=== PATIENT | female | born 1985 | race Caucasian/White ===

== ENCOUNTER 2019-09-16 12:00 | Emergency (ER) | payer OTHER, SELFPAY ==
[2019-09-16 12:06] VITALS: BP 115/73; PULSE 74; RESP 16; TEMP 36.8; O2SAT 100
--- NOTE | 2019-09-16 12:19 | ED.URI ---
HPI - URI/Sore Throat General Chief Complaint: Upper Respiratory Infection Stated Complaint: HEADACHE/CHILLS/BODY ACHES/ST/EARACHE Time Seen by Provider: 09/16/19 12:28 Source: patient and RN notes reviewed Mode of arrival: ambulatory Limitations: no limitations History of Present Illness HPI Narrative: 34-year-old female presents with concern for 3-day history of nasal congestion, ear pain, sore throat, cough, rhinorrhea, body aches. Denies fever. Denies taking any [id number] medications MD elicited complaint: nasal congestion Related Data Allergies Allergy/AdvReac Type Severity Reaction Status Date / Time No Known Drug Allergies Allergy Unknown none Verified 09/16/19 12:13 Review of Systems Review of Systems: Narrative: CONSTITUTIONAL: Reports malaise, chills. Denies sweats, or fever. EYES: Denies visual changes, redness, or discharge. ENT: Reports rhinorrhea, congestion, otalgia and sore throat. CARDIOVASCULAR: Denies chest pain, palpitations, or edema. RESPIRATORY: Reports cough. Denies dyspnea. GASTROINTESTINAL: Denies abdominal pain, nausea, vomiting, diarrhea SKIN: Denies rash or itching. MUSCULOSKELETAL: Reports myalgia. NEUROLOGIC: Denies headache. All systems reviewed & are unremarkable except as noted in HPI and below PMFSH Comments At time of signature, agree with nursing past medical, surgical, social and family history. There is no relevant family history pertinent to the presenting complaint Exam Narrative: Exam Narrative: GENERAL: Well-appearing, well-nourished, and in no acute distress. HEAD: Normocephalic EYES: PERRLA, conjunctivae clear ENT: Nares clear, turbinates edematous and erythematous, clear discharge. Mucous membranes moist. TM pearly daniel with dull light reflex bilaterally; no tragal tenderness. Oropharynx erythematous without lesions. Tonsils not enlarged and without exudate, no drooling, no hoarseness, no trismus, uvula midline. NECK: Supple. No lymphadenopathy CHEST: Clear to auscultation, breath sounds equal. No wheezing, rhonchi, rales, or stridor. No respiratory distress, speaks in full sentences. HEART: Regular rate and rhythm. No murmur heard. Normal peripheral pulses. SKIN: Warm, dry, no rash. NEURO: Alert and oriented x3. PSYCH: Normal mood and affect Course Course Emergency Course: Patient is aware of diagnosis, understands and agrees to treatment plan. Anticipatory guidance given. Patient agrees to follow-up as directed and is aware of reasons to seek care at the emergency department. Portions of this record may have been created with voice recognition software Vital Signs Vital signs: Vital Signs Temperature 98.3 F 09/16/19 12:06 Pulse Rate 74 09/16/19 12:06 Respiratory Rate 16 09/16/19 12:06 Blood Pressure 115/73 09/16/19 12:06 Pulse Oximetry 100 09/16/19 12:06 Temperature 98.3 F 09/16/19 12:06 Pulse Rate 74 09/16/19 12:06 Respiratory Rate 16 09/16/19 12:06 Blood Pressure 115/73 09/16/19 12:06 Pulse Oximetry 100 09/16/19 12:06 Reviewed. MDM - URI/Sore Throat MDM Narrative Medical decision making narrative: Differential diagnosis considered: Strep pharyngitis, allergic rhinitis, upper respiratory tract infection, sinusitis, rhinosinusitis, nasopharyngitis. viral pharyngitis, otitis media, otitis externa, pneumonia, bronchitis, viral cough syndrome, viral syndrome, and influenza. Exam findings show no acute concerns or changes; patient is non-toxic appearing and is in no distress. Patient is appropriate for outpatient treatment and follow-up. Lab Data Attestation: I reviewed the patient's lab results. Labs: Strep Screen Presumptive Negative *(Reference Range: Negative)* Critical Care Time Critical Care Time Critical Care Time: No Discharge Plan Discharge Clinical Impression: Upper respiratory infection Qualifiers: URI type: unspecified viral URI Qualified Code(s): J06.9 - Acute upper respiratory i
== END 2019-09-16 12:55 | disposition home or self-care (01) ==
PROVIDERS: Emergency Provider Nurse Practitioner
DX: J06.9 Acute upper respiratory infection, unspecified (principal)
CPT/HCPCS: 87081; 87804; 87880; 99213; G0463

== ENCOUNTER 2020-04-13 18:37 | Emergency (ER) | payer OTHER, SELFPAY ==
--- NOTE | ~2020-04-13 | US_ITS ---
EXAMINATION: US OB <= 14 weeks fetus DATE: 04/13/2020 20:13 INDICATION: Vaginal bleeding during first trimester TECHNIQUE: Real-time pelvic ultrasound utilizing both a transvaginal and transabdominal probe was pe rformed. The interpreting radiologist was not present for the study. COMPARISON: None. FINDINGS: The uterus measures 12.0 x 6.9 x 5.4 cm. There is an intrauterine gestational sac. A yolk sac and fe eduin pole are identified. The crown rump length measures 1.2 cm, which correlates with an estimated ge stational age of 7 weeks and 3 days. No evident heart motion on cine grayscale or by M-mode Dop pler. The right ovary is not visualized. The left ovary measures 4.2 x 2.7 x 2.0 cm and contains a 2.3 cm l ikely corpus luteum cyst. Vascular flow seen in the left ovary on color Doppler. There is no free flu id in the pelvis. IMPRESSION: 1. Single intrauterine fetus with crown-rump length of 1.2 cm but no discernible heart motion o n M-mode Doppler is suspicious for but on transabdominal imaging not definitively diagnostic for fail ure of . Transvaginal imaging would likely be diagnostic. Reviewed, dictated and finalized at location A. IMPRESSION: 1. Single intrauterine fetus with crown-rump length of 1.2 cm but no discernibl e heart motion on M-mode Doppler is suspicious for but on transabdominal imaging not definitively diagnostic for failure of . Transvaginal imag ing would likely be diagnostic.
[2020-04-13 18:42] VITALS: BP 138/74; PULSE 62; RESP 17; TEMP 36.4; O2SAT 100
--- NOTE | 2020-04-13 18:44 | ED.FEMALEGU ---
HPI - Female Genitourinary General Chief complaint: Vaginal Bleeding Stated complaint: 11 weeks preg, vaginal bleeding Time Seen by Provider: 04/13/20 18:44 History of Present Illness HPI Narrative: female at approximately 11 weeks gestation presents to the ED for Vaginal bleeding. Earlier this evening she experienced some pelvic cramping followed by passage of blood clots and possibly a small amount of tissue. SHe continued to spot and have mild cramping after that. She is Rh positive. Related Data Home Medications Medication Instructions Recorded Confirmed [id number] acid tablet 04/13/20 [ 19] Allergies Allergy/AdvReac Type Severity Reaction Status Date / Time No Known Drug Allergies Allergy Unknown none Verified 04/13/20 18:41 Review of Systems Review of Systems: All systems reviewed & are unremarkable except as noted in HPI and below Cardiovascular: Cardiovascular: Denies chest pain Respiratory: Respiratory: Denies dyspnea Gastrointestinal: Gastrointestinal: Denies abdominal pain, Denies nausea and Denies vomiting Genitourinary: Genitourinary: Reports abnormal vaginal bleeding and Reports pelvic pain Musculoskeletal: Musculoskeletal: Denies back pain [facility] Social History Social History Gender identity (if verbalized by the patient): Female Exam Const: General: healthy appearing, no acute distress and alert Orientation/consciousness: patient oriented x3 HENMT: Head: normal to inspection Neck: Neck: normal visual inspection and no lymphadenopathy Chest: Chest palpation & inspection: no tenderness Resp: Effort & Inspection: normal respiratory effort Auscultation: clear to auscultation bilaterally, no rales, no rhonchi and no wheezes Cardio: Jugular venous distension: no JVD Rate: regular rate Rhythm: regular rhythm Heart sounds: no murmurs GI: Inspection: non-distended GI Palp: Yes Soft to palpation and No Tenderness to palpation present (GI) Skin: General skin exam: normal color Neuro: General: patient oriented x3 and moves all extremities Speech: normal speech Extrem: General: no edema Psych: Appearance: well kempt Affect: normal affect Course Vital Signs Vital signs: Vital Signs Temperature 36.4 C 04/13/20 18:42 Pulse Rate 62 04/13/20 18:42 Respiratory Rate 17 04/13/20 18:42 Blood Pressure 138/74 04/13/20 18:42 Pulse Oximetry 100 04/13/20 18:42 Temperature 36.9 C 04/13/20 21:30 Pulse Rate 80 04/13/20 21:30 Respiratory Rate 18 04/13/20 21:30 Blood Pressure 123/75 04/13/20 21:30 Pulse Oximetry 99 04/13/20 21:30 MDM - Female Genitourinary MDM Narrative Medical decision making narrative: IUP seen on bedside US. No heart activity appreciated. Official US done showing the same. Medical Records Attestation: I reviewed the patient's medical records. Lab Data Attestation: I reviewed the patient's lab results. Labs: Lab Results 04/13/20 Range/Units 19:29 Beta HCG, Quant 62080.00 mIU/ML Imaging Data Radiologist's impression: ITS Impressions Ultrasound 04/13/20 20:18 IMPRESSION: 1. Single intrauterine fetus with crown-rump length of 1.2 cm but no discernible heart motion on M-mode Doppler is suspicious for but on transabdominal imaging not definitively diagnostic for failure of . Transvaginal imaging would likely be diagnostic. Discharge Plan Discharge Clinical Impression: Incomplete miscarriage Patient Disposition: Home, Self-Care Condition: Stable Instructions: Miscarriage (ED) Prescriptions: No Action 19 29 mg iron- 1 mg tablet,chewable RF: 0 Follow-up/Referrals: UNKNOWN,DOCTOR [Primary Care Provider] - Discharge Date/Time: 04/13/20 21:30
[2020-04-13 19:30] VITALS: BP 129/75; PULSE 88; RESP 16; TEMP 36.6; O2SAT 98
[2020-04-13 21:30] VITALS: BP 123/75; PULSE 80; RESP 18; TEMP 36.9; O2SAT 99
== END 2020-04-13 21:30 | disposition home or self-care (01) ==
PROVIDERS: Emergency Provider Emergency Medicine
DX: O03.4 Incomplete spontaneous abortion without complication (principal)
CPT/HCPCS: 36415; 76801; 84702; 99284

== ENCOUNTER 2021-03-13 12:23 | Outpatient (CLI) | payer OTHER, SELFPAY ==
--- NOTE | ~2021-03-13 | XR_ITS ---
EXAMINATION: XR lumbar spine 6V w bending DATE: 03/13/2021 13:41 INDICATION: Low back pain. TECHNIQUE: 7 views of lumbar spine including flexion and extension views were obtained. COMPARISON: Chest single view 09/21/2019 FINDINGS: There is 22 degrees levoscoliosis of thoracolumbar spine. The spine is hypomobile with flex ion and extension. Vertebral body heights and intervertebral disc heights are normal. The facet joint s are unremarkable. IMPRESSION: 1. Thoracolumbar levoscoliosis. Reviewed, dictated and finalized at location A.
--- NOTE | ~2021-03-13 | XR_ITS ---
EXAMINATION: XR sacrum coccyx min 2V DATE: 03/13/2021 13:41 INDICATION: Sacrococcygeal disorders. Right sacroiliac joint pain. TECHNIQUE: 3 views of the sacrum and coccyx were obtained. COMPARISON: Chest single view 09/21/2019 FINDINGS: There is levoscoliosis of thoracolumbar spine. No fracture. There is mild osteoarthritis of the sacroiliac joints characterized by tiny marginal osteophytes. No evidence of inflammatory arthro levi. IMPRESSION: 1. Mild osteoarthritis of the sacroiliac joints. Reviewed, dictated and finalized at location A.
== END 2021-03-13 12:24 | disposition home or self-care (01) ==
LOC: ANHIMG 12:33
PROVIDERS: PCP Physician Assistant; Visit Provider Physician Assistant
DX: M54.5 Low back pain (principal); M53.3 Sacrococcygeal disorders, not elsewhere classified; M41.85 Other forms of scoliosis, thoracolumbar region; M47.898 Other spondylosis, sacral and sacrococcygeal region
CPT/HCPCS: 72114; 72220

== ENCOUNTER 2021-05-20 07:30 | Outpatient (RCR) | payer OTHER, SELFPAY ==
--- NOTE | 2021-03-29 13:57 | PTOPEVAL ---
Thank you for referring Krysta Matias to [facility].? The patient is scheduled to be seen for therapy?1 x/week for 8 weeks. Please review, sign, date and return this plan of care CHAIM. I agree with and certify that the following plan of care is medically necessary. Referring Physician Date Attending Provider: Reinaldo Tinoco PA-C Diagnosis low back pain Onset 4 yrs ago Additional Evaluation Detail She has been having back pain since the of her son 4 yrs ago. She felt a popping sensation of her low back 3 yrs ago. She received chiropractor treatment for a few months with improved symptoms. X-rays: 22 dg left thoracic/ lumbar scoliosis with OA. Subjective Information She will have trouble sleeping Query Text:As Reported By Patient/ due to pain. 2 wks ago she Family started with a epic trainer 1-2x/wk. She was trying to get back into a yoga program. She was leaning over at work and felt a popping sensation again. She has right low back pain this time vs left low back pain last time. Reports increased pain with transition motions from sit<> stand motions. Denies problems with lifting task. She did have problems with ADL's with right LE flex position. Previous Treatments Previous Treatments For This Problem chiropractor Pain Assessment Self Report Pain Assessment Right Lower Back Reported Pain Level 3 Pain Description Aching Pain Frequency Chronic Lowest Pain Intensity 2 Greatest Pain Intensity 5 Lower Extremity Range of Motion General Lower Extremity Range of Motion Reason Not Measured WNL/Left,WNL/Right Cervical and Lumbar Muscle Testing Lumbar Strength Lower Abdominal Strength 3+Fair+ Lower Extremity Muscle Strength Testing General Lower Extremity Strength Reason Not Measured WNL/Left,WNL/Right Gross Lower Extremity Strength nicole LE grosslying 4+/5 to 5/5 Posture Standing Position Thoracic Spine Posture Fixed Scoliosis on (L) Lumbar Spine Posture Fixed Scoliosis on (L) Shoulder Posture (L) Rounded,(R) Rounded,(L) Elevated Scapula Posture (L) Winged,(R) Winged,(L)
--- NOTE | 2021-04-05 08:57 | PCPTNOTE ---
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 Will continue per POC.
--- NOTE | 2021-04-22 10:30 | PTOPEVAL ---
Physical Therapy progress note Thank you for referring Krysta Matias to [facility].? See summary below for progress with limitations of joint motion, pain, tissue restriction and posture. She is progressing towards her therapy goals. The patient is scheduled to be seen for therapy? 1 visit every other week for 3 additional visits. Please review, sign, date and return this plan of care CHAIM. I agree with and certify that the following plan of care is medically necessary. Referring Physician Date Attending Provider: Reinaldo Tinoco PA-C Problem Diagnosis low back pain Onset 4 yrs ago Additional Evaluation Detail She has been having back pain since the of her son 4 yrs ago. She felt a popping sensation of her low back 3 yrs ago. She received chiropractor treatment for a few months with improved symptoms. X-rays: 22 dg left thoracic/ lumbar scoliosis with OA. Subjective Information She cont to c/o ache pain of Query Text:As Reported By Patient/ low back region with improve Family intensity. She is sleeping better. She has not returned to life skills trainer or performing yoga. She is not having the popping senstion of her back. Denies problems with lifting task, functional movements, transfers on/off floor or surfaces. She is able to be supine with nicole LE straight without significant pain. She denies problems with ADL's. Pain Assessment Self Report Pain Assessment Right Lower Back Reported Pain Level 1 Pain Description Aching,Dull Lowest Pain Intensity 1 Greatest Pain Intensity 4 Cervical and Lumbar ROM Lumbar ROM Reason Not Measured WNL/Left,WNL/Right Lumbar Comments 100% of motion, discumfort and muscle tightness with ext, lateral flex Cervical and Lumbar Muscle Testing Lumbar Strength Upper Abdominal Strength 4 Good Lower Abdominal Strength 4-Good- Lower Extremity Muscle Strength Testing General Lower Extremity Strength Reason Not Measured WNL/Left,WNL/Right Gross Lower Extremity Strength nicole LE grosslying 5/5 except right hip abduction 4+/5/5 Posture Posture Standing Position Thoracic Spine Posture Fixed Scoliosis on (L)
--- NOTE | 2021-05-06 07:28 | PCPTNOTE ---
Patient called & cancelled scheduled appointment this date due to unable to make therapy visit today.
--- NOTE | 2021-06-03 07:46 | PCPTNOTE ---
Patient did not show up for scheduled appointment this date. No additional visits planned. Will plan to DC her at this time.
--- NOTE | 2021-06-14 11:22 | PCPTNOTE ---
Admitting Provider: Attending Provider: Reinaldo Tinoco PA-C Patient:Krysta Matias Date of :1985 Physical Therapy Discharge Summary Patient has not returned for any further treatments since 05/20/2021, therefore she will be discharged at this time. Patient?s initial visit was on 03/29/2021 10:30 and she had a total of 5 visits with 3 missed visits. The goals have been partially met at this time. Thank you for referring this patient to [facility]. Please review, sign, date and return this discharge summary CHAIM. I have been updated about the patient's current status and I agree with discharge from the above service at this time. Referring Physician Date
== END 2021-06-18 09:54 | disposition home or self-care (01) ==
LOC: ANHPT 07:30
PROVIDERS: Visit Provider Physician Assistant
DX: M54.5 Low back pain (principal)
CPT/HCPCS: 97110; 97112; 97140; 97162

== ENCOUNTER 2021-11-06 14:19 | Outpatient (CLI) | payer OTHER, SELFPAY ==
--- NOTE | ~2021-11-06 | US_ITS ---
EXAMINATION: US venous doppler [facility] DATE: 11/06/2021 14:59 INDICATION: Left lower limb pain TECHNIQUE: Gatica scale images without and with compression and Doppler images of the left lower extrem ity veins were obtained. COMPARISON: None FINDINGS: The left common femoral vein, profunda femoral vein, femoral vein, popliteal vein, peroneal trunk, posterior tibial veins, and greater saphenous vein are patent. IMPRESSION: 1. Patent left lower extremity veins. No evidence of deep venous thrombosis. Reviewed, dictated and finalized at location F.
== END 2021-11-06 14:20 | disposition home or self-care (01) ==
PROVIDERS: PCP Physician Assistant; Visit Provider Physician Assistant
DX: M79.605 Pain in left leg (principal)
CPT/HCPCS: 93971

== ENCOUNTER 2022-10-01 10:58 | Outpatient (CLI) | payer OTHER, SELFPAY ==
[2022-10-01 12:01] LABS: Strep Group A RT-PCR NOT DETECTED (Negative)
== END 2022-10-01 10:59 | disposition home or self-care (01) ==
PROVIDERS: PCP Physician Assistant; Visit Provider Physician Assistant
DX: J02.9 Acute pharyngitis, unspecified (principal)
CPT/HCPCS: 87651

== ENCOUNTER 2022-10-16 09:45 | Outpatient (CLI) | payer OTHER, SELFPAY ==
--- NOTE | ~2022-10-16 | XR_ITS ---
EXAMINATION:XR cervical spine 4-5V DATE: 10/16/2022 10:23 INDICATION: Neck pain TECHNIQUE: AP, lateral, lateral swimmers and odontoid views of the cervical spine are provided. COMPARISON: None FINDINGS: There is straightening of the cervical spine which can be positional or due to muscular spa sm. Alignment is normal. The odontoid process is intact. No fracture is identified. Vertebral body he ights and disk spaces are normal. Prevertebral soft tissues are normal. IMPRESSION: 1. Straightening of cervical spine, which can be positional or due to muscular spasm, without acute o sseous abnormality. Reviewed, dictated and finalized at location L. IMPRESSION: 1. Straightening of cervical spine, which can be positional or due to muscular spasm, without acute osseous abnormality.
== END 2022-10-16 09:46 | disposition home or self-care (01) ==
PROVIDERS: PCP Physician Assistant; Visit Provider Physician Assistant
DX: M54.2 Cervicalgia (principal)
CPT/HCPCS: 72050

== ENCOUNTER 2022-10-22 09:28 | Emergency (ER) | payer OTHER, SELFPAY ==
--- NOTE | 2022-10-22 09:34 | ED.URI ---
HPI - URI/Sore Throat General Chief Complaint: Upper Respiratory Infection Stated Complaint: COUGH Time Seen by Provider: 10/22/22 09:34 Source: patient and RN notes reviewed History of Present Illness HPI Narrative: Patient is a 37-year-old female who presents to urgent care with complaints of a sore throat and cough. Patient states that she does typically have allergies around this time and has been taking her Claritin. States that it started approximately 2 weeks ago but within the last 2 days the cough has gotten worse. No other acute complaints. No acute distress noted. Patient aware of the plan of care. Some parts of this dictation were generated by voice recognition software and may contain typographical and/or grammatical inaccuracies. Related Data Home Medications Medication Instructions Recorded Confirmed loratadine 10 mg tablet (Claritin) 10 mg PO DAILY 11/06/21 10/22/22 Allergies Allergy/AdvReac Type Severity Reaction Status Date / Time erythromycin base AdvReac Mild Other Verified 10/22/22 09:37 Review of Systems Review of Systems: CONSTITUTIONAL: Denies fever, chills, or sweats. EYES: Denies visual changes, redness, or discharge. ENT: Reports postnasal drainage, rhinorrhea CARDIOVASCULAR: Denies chest pain, palpitations, or edema. RESPIRATORY: Reports of cough without dyspnea GASTROINTESTINAL: Denies abdominal pain, nausea, vomiting, or diarrhea. GENITOURINARY: Denies dysuria or hematuria. SKIN: Denies rash or itching. MUSCULOSKELETAL: Denies back pain, joint pain, or myalgia. NEUROLOGIC: Denies headache, numbness, or weakness. All other systems reviewed are negative, except as documented in HPI. [facility] Past Medical History Medical History Allergies GERD (gastroesophageal reflux disease) Migraines Surgical History Surgical History History of dilatation and curettage Family History Family History Mother Hypertension Depression Anxiety Grandparent Anxiety Depression Grandparent Hypertension Heart disease Social History Social History Smoking status: Never smoker Alcohol intake: unknown Substance use: unknown Lack of Transportation: No Lack of Food: Never True Current Housing: I Have Housing Concerned About Future Housing: No Difficulty Paying Gas/Electric Bills: No Difficulty Paying for Meds: No Currently Unemployed: No Education: Master's Degree or Higher Difficulty w/ Childcare or Family Care: No Gender identity (if verbalized by the patient): Female Comments At the time of my signature, I reviewed and agree with the nursing past medical, surgical, social, and family history. There is no relevant family history pertinent to the patient complaint. Exam Narrative: GENERAL: This is a well-nourished, well-developed patient, in no apparent distress. HEAD: normocephalic, atraumatic. EYES: PERRL. Sclera clear/white. Vision is grossly intact. EARS: External ears normal, auditory canals clear and without drainage, T unable to visualize bilateral TMs due to cerumen impaction. Hearing grossly intact. NOSE: External nose normal with no obvious nasal discharge, nares without redness, no rhinorrhea. THROAT: Mucous membranes moist, posterior pharynx clear. Mild postnasal drainage NECK: Neck supple CARDIOVASCULAR: Regular rate and rhythm without murmurs, gallops, or rubs. RESPIRATORY: Clear to auscultation. Breath sounds equal bilaterally. No wheezes, rales, or rhonchi. SKIN: warm, intact with no suspicious lesions or rash, good texture and turgor. NEURO: awake, alert, and oriented to person, place and time. There were no obvious focal neurologic abnormalities. EXTREMITIES: No clubbing, cyanosis, or edema. Course Course Level of Care
[2022-10-22 09:39] VITALS: BP 118/91; PULSE 97; RESP 16; TEMP 36.8; O2SAT 100
== END 2022-10-22 10:04 | disposition home or self-care (01) ==
PROVIDERS: Emergency Provider Nurse Practitioner Family; PCP Physician Assistant
DX: R05.9 Cough, unspecified (principal)
CPT/HCPCS: 99213; G0463

== ENCOUNTER 2022-11-11 10:59 | Outpatient (CLI) | payer OTHER, SELFPAY ==
--- NOTE | ~2022-11-11 | MR_ITS ---
EXAMINATION: MR lumbar spine wo con DATE: 11/11/2022 11:37 INDICATION: Chronic low back pain TECHNIQUE: Magnetic resonance imaging (MRI) of the lumbar spine was performed without intravenous con trast. Sequences included sagittal T2-weighted FSE, sagittal T2-weighted FS FSE, sagittal T1-weighted FSE, and axial T2-weighted FSE. COMPARISON: Lumbar spine radiographs dated 03/13/2021 FINDINGS: Antegrade upper lumbar levocurvature. 2 mm retrolisthesis L3 on L4 and L4 on L5. Vertebral body heigh ts are normal. Schmorl's nodes at both sides of the T12-L1 endplate. Normal marrow signal. Mild disc and desiccation and mild height loss at L3-L4 and L4-L5 with right foraminal zone annular fissures at both levels. The conus medullaris terminates at L1. There is normal signal in the caudal spinal cord . Paravertebral soft tissues are unremarkable. The following disc levels are specifically discussed: T12-L1: Disc is minimally bulging. There is mild bilateral facet joint osteoarthritis. There is no ne ural foraminal stenosis. There is no central canal stenosis. L1-L2: Disc is minimally bulging. There is mild bilateral facet joint osteoarthritis. There is no luz elena ral foraminal stenosis. There is no central canal stenosis. L2-L3: Disc is minimally bulging. There is mild right and mild to moderate left facet joint osteoarth ritis. There is mild left neural foraminal stenosis. There is no central canal stenosis. L3-L4: Disc is mildly bulging There is mild bilateral facet joint osteoarthritis. There is mild bilat eral neural foraminal stenosis. There is mild central canal stenosis. L4-L5: Disc is mildly bulging. There is mild bilateral facet joint osteoarthritis. There is mild bila teral neural foraminal stenosis. There is mild central canal stenosis. L5-S1: The disc does not extend beyond the endplate margin. There is mild bilateral facet joint osteo arthritis. There is no neural foraminal stenosis. There is no central canal stenosis. IMPRESSION: 1. Mild lumbar spondylosis. Reviewed, dictated and finalized at location [place] IMPRESSION: 1. Mild lumbar spondylosis.
== END 2022-11-11 11:00 | disposition home or self-care (01) ==
PROVIDERS: PCP Physician Assistant; Visit Provider Physician Assistant
DX: M47.896 Other spondylosis, lumbar region (principal)
CPT/HCPCS: 72148

== ENCOUNTER 2023-02-19 19:15 | Emergency (ER) | payer OTHER, SELFPAY ==
--- NOTE | ~2023-02-19 | CT_ITS ---
EXAMINATION: CT abdomen pelvis w con DATE: 02/19/2023 20:33 INDICATION: RUQ/epigastric pain, nausea TECHNIQUE: Computed tomography (CT) of the abdomen and pelvis was performed with 100 mL Omnipaque-350 intravenous contrast. Automated exposure control and iterative reconstruction technique were employe d. The dose-length product was 288.56 mGy-cm. COMPARISON: None. FINDINGS: Lower thorax: Unremarkable Liver: Normal. Biliary/Gallbladder: Gallbladder is normal. No bile duct dilation. Pancreas: No mass or duct dilation. Spleen: Normal. Adrenals:No mass. Kidneys: No mass, stone, or hydronephrosis. GI tract: Mild distal esophageal wall edema. No small or large bowel dilation. Normal appendix. Mesentery/Peritoneum: No ascites, mass, or free air. Retroperitoneum: No mass. Pelvis: Pelvic organs are within normal limits. Soft Tissues: Soft tissues and body wall unremarkable. Bones: No acute osseous finding. IMPRESSION: Mild esophagitis. Otherwise, no acute abdominopelvic process detected. Reviewed, dictated and finalized at location K.
[2023-02-19 19:21] VITALS: BP 158/94; PULSE 74; RESP 15; TEMP 36.2; O2SAT 100
[2023-02-19 19:53] LABS: Appearance Urine Clear (Clear); Bilirubin Urine Negative (Negative); Blood Urine Negative (Negative); Color Urine Yellow (Yellow); Glucose Urine UA Negative (Negative); Ketones Urine Trace mg/dL (Negative); Leukocyte Esterase Ur Negative LEU/UL (Negative); Nitrate Urine Negative (Negative); Protein Urine Negative (Negative); Specific Grav Ur 1.012 (1.001-1.035); Urobilinogen Urine 0.2 mg/dL (<2.0)
[2023-02-19 20:05] LABS: Basophils Absolute Auto 0.1 K/mm3 (0.0-0.1); Basophils Percent Auto 0.7 % (0.2-1.2); Eosinophils Absolute Auto 0.1 K/mm3 (0-0.3); Eosinophils Percent Auto 1.3 % (0-4.4); Hematocrit 40.8 % (37.0-47.0); Hemoglobin 13.6 g/dL (12.0-15.0); Immature Granulocyte Absolute 0.02 K/mm3 (0.00-0.031); Immature Granulocyte Percent A 0.3 % (0-0.5); Lymphocytes Absolute Auto 2.48 K/mm3 (0.9-3.2); Lymphocytes Percent Auto 32.2 % (18.3-44.2); Mean Corpuscular HGB Conc 33.3 g/dl (32-36); Mean Corpuscular Hemoglobin 31.4 pg (26-34); Mean Corpuscular Volume 94.2 fl (80-100); Mean Platelet Volume 9.7 fl (7.4-10.4); Monocytes Absolute Auto 0.4 K/mm3 (0.1-0.6); Monocytes Percent Auto 5.3 % (2.6-8.5); Neutrophils Absolute Auto 4.6 K/mm3 (1.3-6.7); Neutrophils Percent Auto 60.2 % (45.5-73.1); Platelet Count Result 231 k/mm3 (150-375); Red Blood Count 4.33 M/mm3 (4.2-5.4); Red Cell Distribution Width 11.5 % (11.5-14.5); White Blood Count 7.7 K/mm3 (4.5-10.0)
--- NOTE | 2023-02-19 20:07 | ED.ABDPAIN ---
HPI - Abdominal Pain General Chief Complaint: Abdominal Pain Stated Complaint: abdominal pain Time Seen by Provider: 02/19/23 19:31 History of Present Illness HPI narrative: Patient is a 37-year-old female presenting with abdominal pain. Patient states that over the last year she has had intermittent epigastric pain associated with nausea. States that over the last month that has been worsening and increasing in frequency. States that it has been radiating into her right upper quadrant and up into her shoulder and jaw. States that she has been persistently nauseated with decreased appetite. Denies fevers, chest pain, shortness of breath, cough, diarrhea, constipation, dysuria, hematuria. Related Data Home Medications Medication Instructions Recorded Confirmed loratadine 10 mg tablet (Claritin) 10 mg PO DAILY 11/06/21 10/22/22 meclizine 12.5 mg tablet 12.5 mg PO TID PRN 11/11/22 Allergies Allergy/AdvReac Type Severity Reaction Status Date / Time erythromycin base AdvReac Mild Other Verified 02/19/23 19:15 Review of Systems Review of Systems: All systems reviewed & are unremarkable except as noted in HPI and below PMFSH Past Medical History Medical History Allergies GERD (gastroesophageal reflux disease) Migraines Surgical History Surgical History History of dilatation and curettage Family History Family History Mother Hypertension Depression Anxiety Grandparent Anxiety Depression Grandparent Hypertension Heart disease Social History Social History Smoking status: Never smoker Alcohol intake: unknown Substance use: unknown Lack of Transportation: No Lack of Food: Never True Current Housing: I Have Housing Concerned About Future Housing: No Difficulty Paying Gas/Electric Bills: No Difficulty Paying for Meds: No Currently Unemployed: No Education: Master's Degree or Higher Difficulty w/ Childcare or Family Care: No Gender identity (if verbalized by the patient): Female Exam Narrative: GENERAL: Well-appearing, well-nourished, and in no acute distress. Pleasant and cooperative HEAD: Normocephalic, atraumatic. EYES: PERRLA and EOMI. ENT: Nares clear, no rhinorrhea or epistaxis. Mucous membranes moist. NECK: Supple. CHEST: No respiratory distress. HEART: Regular rate and rhythm ABDOMEN: Soft, +RUQ/epigastric tenderness, slight RLQ tenderness, no guarding or rebound EXTREMITIES: Normal range of motion. No edema. SKIN: Warm, dry, no rash. NEURO: No focal deficits. Alert and oriented x3. PSYCH: Normal mood and affect. Course Vital Signs Vital signs: Vital Signs Temperature 97.2 F L 02/19/23 19:21 Pulse Rate 74 02/19/23 19:21 Respiratory Rate 15 02/19/23 19:21 Blood Pressure 158/94 H 02/19/23 19:21 Pulse Oximetry 100 02/19/23 19:21 Temperature 97.2 F L 02/19/23 19:21 Pulse Rate 58 L 02/19/23 21:57 Respiratory Rate 16 02/19/23 21:57 Blood Pressure 111/76 02/19/23 21:57 Pulse Oximetry 100 02/19/23 21:57 MDM - Abdominal Pain MDM Narrative Medical decision making narrative: Patient is a 37-year-old female presenting with epigastric and right upper quadrant pain associated with nausea. Vitals are stable. Exam remarkable for the above. Plan for blood work, CT abdomen pelvis, fluids, Toradol, Zofran. Blood work is unremarkable. UA unremarkable. CT abdomen pelvis with mild esophagitis. Will give the patient a dose of IV Pepcid as well as some oral Bentyl. From the description of her pain, very possible she has a component of IBS. Will send her out with Pepcid, Bentyl, Zofran and advised GI follow-up. Appropriate return precautions given. Patient voiced understanding and is agreeable with
[2023-02-19 20:12] LABS: Add Urine Microscopic? NO
[2023-02-19 20:14] LABS: Alanine Aminotransferase 20 U/L (6-35); Albumin Level 4.7 g/dL (3.5-5.1); Alkaline Phosphatase 67 U/L (38-126); Anion Gap 9 mmol/L (8-16); Aspartate Amino Transferase 24 U/L (14-36); Bilirubin,Total 0.6 mg/dL (0.2-1.3); Blood Urea Nitrogen 7 mg/dL (7-17); Calcium 9.4 mg/dL (8.4-10.2); Carbon Dioxide 27 mmol/L (22-30); Chloride 102 mmol/L (98-107); Estimated CRCL calculation 78 ml/min; Estimated Glomerular Filt Rate > 60; Glucose 89 mg/dL (65-110); Lipase 97 U/L (23-300); Potassium 3.4 mmol/L (3.4-5.0); Sodium 138 mmol/L (137-145)
[2023-02-19] MEDS: KETOROLAC 30 MG/ML VIAL (*BKC) IV PUSH (20:18)
[2023-02-19] MEDS: ONDANSETRON INJ 4 MG/2 ML VIAL IV PUSH (20:18)
[2023-02-19] MEDS: SODIUM CHLORIDE 0.9% IV 1,000 ML 999 ML IV CONT (20:18)
[2023-02-19] MEDS: DICYCLOMINE HCL 10 MG CAPSULE 20 MG PO (21:21)
[2023-02-19] MEDS: FAMOTIDINE 20 MG/2 ML VIAL IV PUSH (21:21)
[2023-02-19 21:57] VITALS: BP 111/76; PULSE 58; RESP 16; O2SAT 100
== END 2023-02-19 21:58 | disposition home or self-care (01) ==
PROVIDERS: Emergency Provider Emergency Medicine; PCP Physician Assistant
DX: K20.90 Esophagitis, unspecified without bleeding (principal); K21.9 Gastro-esophageal reflux disease without esophagitis
CPT/HCPCS: 36415; 74177; 80053; 81003; 81025; 83690; 85025; 96361; 96374; 96375; 99284; A9270; J1885; J2405; J7030; Q9967

== ENCOUNTER 2023-05-04 05:47 | Day surgery (SDC) | payer OTHER, SELFPAY ==
[2023-04-20 11:39] VITALS: BMI 23.8
[2023-05-04] MEDS: LACTATED RINGERS 1,000 ML 150 ML IV CONT (06:45)
--- NOTE | 2023-05-04 07:28 | WPDANESEPPF ---
Anes - Initial Pre Proc Eval Procedure: Operation Date: 05/04/23 07:30 Proposed Procedures p Esophagogastroduodenoscopy - Jose Roth MD s Colonoscopy - Jose Roth MD Date/Time: 05/04/23 07:28 Surgeon: Jose Roth MD Pre Op Diagnosis: RLQP,LLQP,Melena,Chronic Pain,Change in Bowel Patient Data Age: 37 Gender: F Height: 1.6 m Weight: 59 kg Allergies Allergy/AdvReac Type Severity Reaction Status Date / Time erythromycin base AdvReac Mild Nausea and Verified 05/04/23 06:41 Vomiting Home Medications Medication Instructions Recorded Confirmed Type loratadine 10 mg tablet (Claritin) 10 mg PO DAILY 11/06/21 05/04/23 History meclizine 12.5 mg tablet 12.5 mg PO TID PRN Dizziness 11/11/22 05/04/23 History ondansetron HCl 4 mg tablet 4 mg PO Q8H PRN nausea and 02/19/23 05/04/23 Rx vomiting 5 days #20 tabs Patient hx anesthesia problems: none Family hx anesthesia problems: none Results Review: All pre-operative results and documents have been reviewed as part of the pre-operative evaluation. [facility] Past Medical History Medical History Abnormal CT scan, esophagus Allergies Altered bowel habits Chronic bilateral lower abdominal pain GERD (gastroesophageal reflux disease) Hematochezia Migraines Surgical History Surgical History (Updated 05/04/23 @ 07:[address] MD) H/O LEEP History of dilatation and curettage History of esophagogastroduodenoscopy (EGD) Family History Family History Mother Hypertension Depression Anxiety Grandparent Anxiety Depression Grandparent Hypertension Heart disease Social History Social History Smoking status: Never smoker Alcohol intake: current Substance use: never Substance use type: does not use Lack of Transportation: No Lack of Food: Never True Current Housing: I Have Housing Concerned About Future Housing: No Difficulty Paying Gas/Electric Bills: No Difficulty Paying for Meds: No Currently Unemployed: No Education: Master's Degree or Higher Difficulty w/ Childcare or Family Care: No Living arrangements: with family Gender identity (if verbalized by the patient): Female Spiritual care concerns: No Anes - Eval Final PreProcedure Day of Procedure 05/04/23 07:28 Patient weight: normal Heart: regular rate and rhythm Lungs: clear to auscultation Airway: Mallampati scale class 1 Neurological: alert and oriented Last oral intake: >/= 8 hours ASA classification: I Emergent: no Anesthetic plan: proceed Anesthesia type and monitoring: general GIVS and standard monitoring Results Review: All pre-operative results and documents have been reviewed as part of the pre-operative evaluation. Informed Consent: The patient's anesthetic plan and its attendant risks and benefits were discussed with the patient/family/POA. Questions were solicited and answers provided to the satisfaction of the patient/family/POA.
[2023-05-04 07:30] VITALS: BP 126/81; PULSE 73; RESP 16; TEMP 37; O2SAT 100
--- NOTE | 2023-05-04 07:30 | PM.HPGS ---
History of Present Illness History of Present Illness Consent: Risks, benefits, and alternatives have been discussed and questions answered. Patient agrees to proceed with procedure. Chief complaint: RLQP,LLQP,Melena,Chronic Pain,Change in Bowel Narrative: Krysta Matias is a 37 year old female with abdominal pain for few years but last several months more frequent and intense, cramps for [address] scan showed possible esophagitis, had EGD but several years ago, never colonoscopy. Also gluten sensitivity , noted blood in stools in few occasions. Review of Systems Constitutional: Constitutional: Denies headache(s) and Denies weakness Eyes: Eyes: Denies blurry vision ENT: Reports Normal hearing present, Denies headache(s) and Denies neck pain Cardiovascular: Cardiovascular: Denies chest pain and Denies dyspnea Respiratory: Respiratory: Denies dyspnea Gastrointestinal: Gastrointestinal: Reports no additional gastrointestinal complaints Genitourinary: Genitourinary: Denies dysuria Musculoskeletal: Musculoskeletal: Denies neck pain Integumentary/Breasts: Skin/Breast: Denies dry skin Neurologic: Reports Normal hearing present, Denies headache(s) and Denies weakness Psychiatric: Psychiatric: Denies anxiety Endocrine: Endocrine: Denies change in body appearance Hematologic/Lymphatic: Hematologic/Lymphatic: Denies easy bleeding Allergic/Immunologic: Allergic/Immunologic: Denies urticaria PMFSH Past Medical History Medical History Abnormal CT scan, esophagus Allergies Altered bowel habits Chronic bilateral lower abdominal pain GERD (gastroesophageal reflux disease) Hematochezia Migraines Surgical History Surgical History (Updated 05/04/23 @ 07:[address] MD) H/O LEEP History of dilatation and curettage History of esophagogastroduodenoscopy (EGD) Family History Family History Mother Hypertension Depression Anxiety Grandparent Anxiety Depression Grandparent Hypertension Heart disease Social History Social History Smoking status: Never smoker Alcohol intake: current Substance use: never Substance use type: does not use Lack of Transportation: No Lack of Food: Never True Current Housing: I Have Housing Concerned About Future Housing: No Difficulty Paying Gas/Electric Bills: No Difficulty Paying for Meds: No Currently Unemployed: No Education: Master's Degree or Higher Difficulty w/ Childcare or Family Care: No Living arrangements: with family Gender identity (if verbalized by the patient): Female Spiritual care concerns: No Meds Home Medications and Allergies Home Medications Medication Instructions Recorded Confirmed Type loratadine 10 mg tablet (Claritin) 10 mg PO DAILY 11/06/21 05/04/23 History meclizine 12.5 mg tablet 12.5 mg PO TID PRN Dizziness 11/11/22 05/04/23 History ondansetron HCl 4 mg tablet 4 mg PO Q8H PRN nausea and 02/19/23 05/04/23 Rx vomiting 5 days #20 tabs Allergies Allergy/AdvReac Type Severity Reaction Status Date / Time erythromycin base AdvReac Mild Nausea and Verified 05/04/23 06:41 Vomiting Exam Const: General: comfortable and no acute distress HENMT: Face/Nose/Sinus: Normal nares present Eyes: General: appearance normal, both eyes and all related structures Neck: Neck: no JVD Resp: Auscultation: clear to auscultation bilaterally Cardio: Rate: regular rate Rhythm: regular rhythm GI: Inspection: non-distended GI Palp: Yes Soft to palpation Skin: General skin exam: normal color Neuro: General: gait normal Speech: normal speech Extrem: General: normal to inspection Psych: Mental Status: mental status grossly normal Assessment and Plan Assessment and plan (1) Chronic bilateral lower abdominal pain: Co
[2023-05-04 08:00] VITALS: BP 126/81; PULSE 73; RESP 16; O2SAT 100
[2023-05-04 08:10] VITALS: BP 104/68; PULSE 65; RESP 15; O2SAT 100
--- NOTE | 2023-05-04 08:13 | WPDANESPN ---
Anes - Prog Note Post-Op Date/Time: 05/04/23 08:13 Cardiovascular status: normal Respiratory status: normal Airway patency: baseline Mental status: baseline Post-Op hydration status: normal Vital Signs: Last Vital Signs Temp 37.0 C 05/04/23 07:30 Pulse 73 05/04/23 08:00 Resp 16 05/04/23 08:00 BP 126/81 05/04/23 08:00 Pulse Ox 100 05/04/23 08:00 O2 Del Method Room Air 05/04/23 08:00 Pain Score (VAS): 0/10 I/O: Intake & Output 05/03/23 05/04/23 05/04/23 23:59 07:59 15:59 Intake Total 500 Balance 500 Patient Feedback: Patient satisfied with anesthetic care.
[2023-05-04 08:20] VITALS: BP 108/75; PULSE 62; RESP 18; O2SAT 100
== END 2023-05-04 08:37 | disposition home or self-care (01) ==
PROVIDERS: PCP Physician Assistant; Visit Provider Internal Medicine Gastroenterology
PROC: 0DJ08ZZ Inspection of Upper Intestinal Tract, Via Natural or Artificial Opening Endoscopic (ICD-10-PCS; CPT 43235; principal; 2023-05-04 07:30)
PROC: 0DJD8ZZ Inspection of Lower Intestinal Tract, Via Natural or Artificial Opening Endoscopic (ICD-10-PCS; CPT 45378; 2023-05-04 07:30)
DX: K64.8 Other hemorrhoids (principal); K29.70 Gastritis, unspecified, without bleeding
CPT/HCPCS: 45378; 43239

== ENCOUNTER 2023-05-04 07:00 | Outpatient (NON) | payer OTHER, SELFPAY | END 2023-05-04 07:01 | disposition home or self-care (01) | PROVIDERS: PCP Physician Assistant; Visit Provider Internal Medicine Gastroenterology | DX: R19.4 Change in bowel habit (principal) | CPT/HCPCS: 88305 ==

== ENCOUNTER 2023-10-17 13:17 | Emergency (ER) | payer OTHER, SELFPAY ==
--- NOTE | 2023-10-17 13:28 | ED.GENADULT ---
HPI - General Adult General Chief complaint: Skin/Abscess/Foreign Body Stated complaint: RASH Time Seen by Provider: 10/17/23 13:29 History of Present Illness HPI narrative: 38-year-old patient presents to clinic today with complaints of a rash that started on the right jaw corner and has progressed over the ear and towards the back of her scalp on the right side with a burning and painful, tingling rash. The rash started approximately 8 days ago and she self-treated the rash on her jaw with topical steroids which did help with symptoms. patient states she has been traveling recently and is unaware of anyone that she knows who has shingles. patient denies fevers, chills, body aches but does have swollen, tender lymph nodes of the right side of her neck and under her chin on the right side. Related Data Home Medications Medication Instructions Recorded Confirmed loratadine 10 mg tablet (Claritin) 10 mg PO DAILY 11/06/21 05/04/23 meclizine 12.5 mg tablet 12.5 mg PO TID PRN Dizziness 11/11/22 05/04/23 aspirin 81 mg tablet,delayed 81 mg PO DAILY 10/17/23 10/17/23 release (Adult Low Dose Aspirin) vits 75-iron 28 mg-folic pkg PO 10/17/23 acid 800 mcg-omega3 440 mg oral pack Allergies Allergy/AdvReac Type Severity Reaction Status Date / Time erythromycin base AdvReac Mild Nausea and Verified 10/17/23 13:25 Vomiting Review of Systems Review of Systems: CONSTITUTIONAL: Denies fever, chills, or sweats. patient is 27 weeks . EYES: Denies visual changes, redness, or discharge. ENT: Denies rhinorrhea, congestion, sore throat, or otalgia. CARDIOVASCULAR: Denies chest pain, palpitations, or edema. RESPIRATORY: Denies cough or dyspnea. GASTROINTESTINAL: Denies abdominal pain, nausea, vomiting, or diarrhea. GENITOURINARY: Denies dysuria or hematuria. SKIN: Positive rash that pacheco, tingles, and is painful. Denies itching. MUSCULOSKELETAL: Denies back pain, joint pain, or myalgia. NEUROLOGIC: Denies headache, numbness, or weakness. PSYCHIATRIC: Denies anxiety or depression. [facility] Past Medical History Medical History (Updated 10/17/23 @ 13:54 by DEANDRA Kothari) Abnormal CT scan, esophagus Allergies Altered bowel habits Chronic bilateral lower abdominal pain GERD (gastroesophageal reflux disease) Hematochezia Migraines Surgical History Surgical History (Updated 05/04/23 @ 07:[address] MD) H/O LEEP History of dilatation and curettage History of esophagogastroduodenoscopy (EGD) Family History Family History Mother Hypertension Depression Anxiety Grandparent Anxiety Depression Grandparent Hypertension Heart disease Social History Social History Smoking status: Never smoker Alcohol intake: current Substance use: never Substance use type: does not use Lack of Transportation: No Lack of Food: Never True Current Housing: I Have Housing Concerned About Future Housing: No Difficulty Paying Gas/Electric Bills: No Difficulty Paying for Meds: No Currently Unemployed: No Education: Master's Degree or Higher Difficulty w/ Childcare or Family Care: No Living arrangements: with family Gender identity (if verbalized by the patient): Female Spiritual care concerns: No Comments At the time of my signature I agree with nursing past medical history, surgical, social, and family history. There is no relevant family history pertinent to the presenting complaint. Exam Narrative: GENERAL: Well-appearing, well-nourished, and in no acute distress. patient is 27 weeks . HEAD: Normocephalic, atraumatic. EYES: PERRLA and EOMI. ENT: Nares clear, no rhinorrhea or epistaxis. Mucous membranes moist. NECK: Supple. positive lymphadenopathy of the posterior cervical chain and submandibular area on the right side. CHEST: Clear to a
[2023-10-17 13:30] VITALS: BP 111/67; PULSE 103; RESP 16; TEMP 36.8; O2SAT 100
== END 2023-10-17 14:00 | disposition home or self-care (01) ==
PROVIDERS: Emergency Provider Nurse Practitioner Family; PCP Physician Assistant
DX: O98.513 Other viral diseases complicating pregnancy, third trimester (principal); B02.7 Disseminated zoster; Z3A.29 29 weeks gestation of pregnancy; O99.613 Diseases of the digestive system complicating pregnancy, third trimester; K21.9 Gastro-esophageal reflux disease without esophagitis
CPT/HCPCS: 99213; G0463

== ENCOUNTER 2024-01-26 14:52 | Outpatient (CLI) | payer OTHER, SELFPAY ==
--- NOTE | 2024-01-26 14:55 | PC.NURSE ---
In- 1350 Out- 1440 Reason for visit: sore nipples, pump flange fit check (24mm), difficulty maintaining a latch History: Mother delivered at [facility] [place] on Thursday01/23/24. has been exclusively and her milk is coming in, infant weight (6% loss at discharge) and jaundice WNL at discharge. Infant History: Infant mouth assessed, tongue frenulum is tight and infant's tongue has a heart shaped tip. The frenulum is not attached at the tip of the tongue. Dr. Brush is seeing baby tomorrow morning for his first visit, advised patient to ask Dr. Brush her opinion about the tongue. Advised that not all pediatricians clip or recommend clipping a frenulum. A tongue that can move far enough out of the mouth to maintain a deep and effective latch may not need treatment. Mother verbalized her understanding. Observations: Observed mother latch infant in to the right breast in cross cradle, infant struggles to maintain a latch despite good effort, infant begins to get frustrated, so mother hand expressed a bit to entice him and try to soften her breast; suggested mom try football position and latched quickly and maintained a deep latch, suckling and swallowing frequently; mom has struggled with football hold in the past, but felt comfortable with pillows and positioning; mother allowed infant to lay flat on the pillow and 'dropped' the nipple into his mouth when he opened wide; counseled mom on maintaining the deep latch and not allowing infant to slip to the nipple, and how to unlatch if it's shallow or compress more tissue into baby's mouth while he suckles; infant fed for about 15 minutes and pushed off the breast on his own, he was very satisfied and was sleeping the rest of the visit. Mother's nipples are painful, bruised and scabbed, but do not have any open or draining sores. She is using nipple ointment, silverettes and we discussed tea bags as a 'home remedy'. Advised patient to always use good hand hygiene so she doesn't introduce infection to the nipple/breast. Discussed pumping or hand expressing if she needs a break from nursing at one feeding to let her nipples heal. Applying breastmilk and letting her nipples air dry after feeds also discussed. Mother does state that the initial latch on is very painful but as nurses it dissipates and becomes more like soreness that is tolerable. There is not consistent pain or pinching during the feeding. Mother's nipple is sometimes flattened after feeding; advised this could mean does not have his tongue in the right placement, potentially due to the tight frenulum. weight: 8 # 5 Plan of Care: Suggested mother try pumping to soften breast before nursing, entice infant with pumped milk as an 'appetizer' before trying to latch, pumping to begin milk letdown prior to latch so baby gets more instant gratification, and trying to add an additional feeding during the day so he is not quite so frantic at the beginning of feeds. Also discussed the attendant arcade appointment and getting Dr. Brush's advice on baby's tight tongue. Mother works very well with baby, holds her breast to get a deep latch, and works consistently to have baby maintain his latch. She states that once he 'starts gulping' he will maintain the latch and not get off and on like he does prior to letdown. Encouraged her to keep doing what she is doing with the addition of the discussed solutions. Follow up plans: Call the Team for any additional questions or if further appointments are needed. Patient is agreeable to all solutions discussed and feels confident to go home continuing to exclusively breastfeed dennis Thibodeaux. Will forward information to Dr. Brush for her records.
== END 2024-01-26 14:53 | disposition home or self-care (01) ==
LOC: ANHOBOP 14:54
PROVIDERS: PCP Physician Assistant; Visit Provider Pediatrics
DX: N64.4 Mastodynia (principal)
CPT/HCPCS: 99202; G0463

== ENCOUNTER 2025-01-20 13:04 | Outpatient (CLI) | payer OTHER, SELFPAY ==
--- NOTE | ~2025-01-20 | MM_ITS ---
EXAMINATION: MM diagnostic betsey BI w micheline HISTORY: 39-year-old woman presents for diagnostic follow-up of indeterminate microcalcifications wit hin the upper outer quadrant of the left breast seen at outside institution on baseline mammography. TECHNIQUE: Additional magnification images of upper outer left breast were performedin both the CC, a nd ML position. COMPARISON: None. BREAST PARENCHYMAL COMPOSITION:Dense: The breasts are extremely dense, which lowers the sensitivity o f mammography. FINDINGS: MAMMOGRAPHIC FINDINGS: Multiple groups of indeterminate microcalcifications are identified within the upper outer quadrant o f the left breast for which stereotactic biopsy is needed. These microcalcifications are fine and pleomorphic in morphology. Additional calcifications are identified, which are larger and more dense, which are not nearly as bolivar spicious as the 2-3 similar appearing groups which are closest to the nipple. IMPRESSION: Fine pleomorphic microcalcifications within the upper outer quadrant of the left breast for which st ereotactic biopsy is recommended. BI-RADS category 4, suspicious findings. Reviewed, dictated and finalized at location A. IMPRESSION: Fine pleomorphic microcalcifications within the upper outer quadrant of the le ft breast for which stereotactic biopsy is recommended. BI-RADS category 4, suspicious findings.
--- OUTSIDE RECORDS SUMMARY | 2025-01-20 13:11 | XMS_ITS | Clinical Summary ---
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 Gender Identity Not on file Sexual Orientation Not on file Plan of Treatment Health Maintenance Due Date Last Done Comments Hepatitis C Virus (HCV) Screening 1984 TdaP Immunization 1984 Hepatitis B Immunization (1 of 3 - 19+ 3-dose series) 2003 Pap Smear 2005 Cervical Cancer Screening (CCS) 2014 HPV/Cotest 2014 Influenza Immunization (#1) 2024 SARS-COV-2 Immunization ( season) 2024 Discussion re Starting/Frequ ency of Mammograms 2024 Respiratory Syncytial Virus (RSV) Immunization (Adult) (1 - 1-dose 75+ series) 2059 Meningococcal Immunization (ACWY) Aged Out No longer eligible based on patient's age to complete this topic Pneumococcal Immunization Combined Aged Out No longer eligible based on patient's age to complete this topic Rotavirus Immunization Aged Out No lo nger eligible based on patient's age to complete this topic
--- OUTSIDE RECORDS SUMMARY | 2025-01-20 13:11 | XMS_ITS | Clinical Summary ---
Author Organization [email or web address] Address [address] [place] [address] Care Team Providers Care Mud Car Worker Name Role Phone Unavailable Primary Care Provider Unavailabl e Source Comments [facility] [email or web address],non-owned Affiliates and Associated Physician Practices is amultiple site organization consisting of ambulatory clinics and hospital sitesin [place], [place], [place] and [place]. This disclosure is being madepursuant to the Care Everywhere program and may not contain all information available regarding this patient. Last updated [email or web address] Allergies Active Allergy Reactions Criticality Noted Date Comments Erythromycin Nausea and/or Vomiting 03/15/2012 Medications * Be aware that medications may not be up to date on this document. Alwaysverify current medications with the patient. vitamin ( 19) 29-1 MG CHEW Take 1 tablet by mouth once daily 90 tablet 3 03/20/2020 Active Active Problems Problem Noted Date Diagnosed Date Abnormal Pap smear and cervical HPV (human papil lomavirus) 06/28/2012 Comments Yes Resolved Problems Problem Noted Date Diagnosed Date Resolved Date (normal spontaneous vaginal delivery) 03/18/2017 03/20/2017 care, subsequent 09/05/2016 04/29/2017 Encounter for supervision of other normal 01/10/2015 07/16/2015 Overview (05/20/2015): Rubella non-immune status, antepartum 11/07/2014 07/16/2015 Immunizations Immunization Administration Dates Next Due MMR 06/18/2015 TDAP (7yrs+) 01/09/2017,04/04/2015,03/15/2012 Family History Medical History Relation Name Comments Heart Disease Maternal Grandfather Bleeding Disorders Mother Relation Name Status Comments Brother 1 Alive x1 Brother 2 Alive x1 half Father Alive Maternal Grandfather Mother Alive Sister Alive x3 half Social History Tobacco Use Types Packs/Day Years Used Date Smoking Tobacco: Never Smokeless Tobacco: Never Tobacco Cessation:Counseling Given: No Comments:socially Alcohol Use Standard Drinks/Week Comments No 0 (1 standard drink = 0.6 oz pur e alcohol) occasional socially Comments Yes Sex and Gender Information Value Date Recorded Sex Assigned at Not on file Legal Sex Female 2:07 PM FIELD OPERATIONS COORDINATOR Gender Identity Not on file Sexual Orientation Not on file 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 Not on file Last Filed Vital Signs Vital Sign Reading Time Taken Comments Blood Pressure 109/59 09/20/2020 12:00 PM FIELD OPERATIONS COORDINATOR Pulse 54 09/20/2020 12:00 PM FIELD OPERATIONS COORDINATOR Temperature 36.7 C (98 F) 09/20/2020 12:00 PM FIELD OPERATIONS COORDINATOR Respiratory Rate 18 09/20/2020 12:00 PM FIELD OPERATIONS COORDINATOR Oxygen Saturation 100% 09/20/2020 12:00 PM FIELD OPERATIONS COORDINATOR Inhaled Oxygen Concentration - - Weight 64.9 kg (143 lb) 09/19/2020 11:45 AM FIELD OPERATIONS COORDINATOR Height 160 cm (5' 3) 09/19/2020 11:45 AM FIELD OPERATIONS COORDINATOR Body Mass Index 25.33 09/19/2020 11:45 AM FIELD OPERATIONS COORDINATOR Plan of Treatment Health Maintenance Due Date Last Done Comments LIPID TESTING 1984 HEPATITIS C SCREENING 06/28/2002 HEPATITIS B VACCINE (1 of 3 - 19+ 3-dose series) 2003 HPV VACCINE (1 - 3-dose SCDM series) 2011 MAMMOGRAM 11/03/2016 11/03/2014 PAP with HPV 06/26/2019 06/26/2014, 03/10/2014, 09/21/2013 COVID-19 VACCINE (2023-2 5 season) 2024 DEPRESSION SCREENING 07/13/2024 INFLUENZA VACCINE (#1) 2025 DTAP/TDAP/TD VACCINES (4 - T d or Tdap) 01/09/2027 01/09/2017, 04/04/2015, 03/15/2012 ZOSTER VACCINE (1 of 2) 2034 Respiratory Syncytial Virus (RSV) Vaccine Pt: or over 60 yrs (1 - 1-dose 75+ series) 2059 HIV SCREENING Completed 09/01/2016, 11/03/2014 HIB VACCINE Aged Out No longer eligi ble based on patient's age to complete this topic MENINGOCOCCAL (Group B) VACCINE SHARED DECISION-MAKING Aged Out No longer eligible based on patient's age to complete this topic MENINGOCOCCAL GROUPS A/C/Y/W VACCINE Aged Out No longer eligible b ased on patient's age to complete this topic PNEUMOCOCCAL VACCINE Aged Out No long er eligible based on patient's age to complete this topic Procedures Procedure Name Priority Date/Time Associated Diagnosis Comments STREP B ROBERTH Routine 02/18/2017 3:32 PM CDT care, subsequent , third trimester GLUCOSE CHALLENGE Routine 12/19/2016 9:1 7 AM CDT care, subsequent , second trimester OBSTETRIC PANEL Routine 09/01/2016 3:31 PM FIELD OPERATIONS COORDINATOR Missed period MAMMO BILAT SCREENING Routine 11/03/2014 HPV DNA PROBE HIGH RISK Routine 06/26/2014 10:10 AM FIELD OPERATIONS COORDINATOR Papanicolaou smear of cervix with atypical squamous cells of undetermined significance (ASC-US) from Last 3 Months or Most Recently Relevant to Health Maintenance Results * (ABNORMAL) STREP B ROBERTH (02/18/2017 3:32 PM CDT) Strep B ROBERTH Positive( A) Negative [facility] ACCOUNT BILL Comment: Centers for Disease Control and Prevention (CDC) and [place] [employer] Gynecologists (ACOG) guidelines for prevention of group B streptococcal (GBS) disease specify co-collection of a vaginal and rectal swab specimen to maximize sensitivity of GBS detection. Per the CDC and ACOG, swabbing both the lower vagina and rectum substantially increases the yield of detection compared with sampling the vagina alone. . Penicillin G, ampicillin, or cefazolin are indicated for intrapartum prophylaxis of GBS colonization. Reflex susceptibility testing should be performed prior to use of clindamycin only on GBS isolates from penicillin-allergic women who are considered a high risk for anaphylaxis. Treatment with vancomycin without additional testing is warranted if resistance to clindamycin is noted. Microbiology MISCELLANEOUS SAMPLES / Unknown 02/18/2017 3:32 PM CDT 02/19/2017 Narrative Resulting Agency [facility] [address] [phone] Dequan Reynaga MD LAB - MICROBIOLOGY ORDERABLE S Final Result Performing Organization Address [facility] Co de Phone Number [facility] ACCOUNT BILL [address] [place] [address] * GLUCOSE CHALLENGE (12/19/2016 9:17 AM CDT) Pathologist [facility] GTT 1Hr 113 65 - 139 mg/dL [facility] INSURANCE BILL Comment: According to ADA, a glucose threshold of >139 mg/dL after 50-gram load identifies approximately 80% of women with gestational diabetes mellitus, while the sensitivity is further increased to approximately 90% by a threshold of >129 mg/dL. FASTING Blood BLOOD SPECIMEN / Unknown 12/19/2016 9:17 AM CDT 12/19/2016 Narrative Resulting Agency Comment [facility] [address] [phone] Dequan Reynaga MD LAB - CHEMISTRY ORDERABLES F inal Result Performing Organization Address [facility] de Phone Number [facility] INSURANCE BILL [address] [place] [address] * (ABNORMAL) OBSTETRIC PANEL (09/01/2016 3:31 PM FIELD OPERATIONS COORDINATOR) Pathologist [facility] Hepatitis B Virus Surface Antigen Negative Negative [facility] INSURANCE BILL Rubella Antibody 4.51 Immune >0.99 index [facility] INSURANCE BILL Comment: Non-immune <0.90 Equivocal 0.90 - 0.99 Immune >0.99 ABO A [facility] INSURANCE BILL Rh Type Positive [facility] INSURANCE BILL Comment: Please note: Prior records for this patient's ABO / Rh type are not available for additional verification. Antibody Screen Negative Negative [facility] INSURANCE BILL RPR Non Reactive Non Reactive [facility] INSURANCE BILL HIV Screen 4th Generation w Reflex Non Reactive Non Reactive [facility] INSURANCE BILL WBC 6.9 3.4 - 10.8 x10E3/uL [facility] INSURANCE BILL RBC 3.93 3.77 - 5.28 x10E6/uL [facility] INSURANCE BILL Hemoglobin 11.9 11.1 - 15.9 g/dL [facility] INSURANCE BILL Hematocrit 33.8(L) 34.0 - 46.6 % [facility] INSURANCE BILL MCV 86 79 - 97 fL [facility] INSURANCE BILL MCH 30.3 26.6 - 33.0 pg [facility] INSURANCE BILL MCHC 35.2 31.5 - 35.7 g/dL [facility] INSURANCE BILL RDW 12.5 12.3 - 15.4 % [facility] INSURANCE BILL Platelet Count 216 150 - 379 x10E3/uL [facility] INSURANCE BILL Granulocytes % 60 % [facility] INSURANCE BILL Lymphocytes % 30 % [facility] INSURANCE BILL Monocytes % 8 % [facility] INSURANCE BILL Eosinophils % 2 % [facility] INSURANCE BILL Basophils % 0 % [facility] INSURANCE BILL Immature Cells NOT NEEDED [facility] INSURANCE BILL Comment:Ancillary determined the test is not needed Granulocytes Absolute 4.2 1.4 - 7.0 x10E3/uL [facility] INSURANCE BILL Lymphocytes Absolute 2.1 0.7 - 3.1 x10E3/uL [facility] INSURANCE BILL Monocytes Absolute 0.5 0.1 - 0.9 x10E3/uL [facility] INSURANCE BILL Eosinophils Absolute 0.1 0.0 - 0.4 x10E3/uL [facility] INSURANCE BILL Basophils Absolute 0.0 0.0 - 0.2 x10E3/uL [facility] INSURANCE BILL Immature Granulocytes 0 % [facility] INSURANCE BILL Immature Granulocytes Absolute 0.0 0.0 - 0.1 x10E3/uL [facility] INSURANCE BILL nRBC NOT NEEDED [facility] INSURANCE BILL Comment:Ancillary determined the test is not needed Comment Hematology NOT NEEDED [facility] INSURANCE BILL Comment:Ancillary determined the test is not needed Blood BLOOD SPECIMEN / Unknown 09/01/2016 3:31 PM FIELD OPERATIONS COORDINATOR 09/01/2016 Narrative Resulting Agency Comment [facility] [address] [phone] us Dequan Reynaga MD LAB - CHEMISTRY ORDERABLES F inal Result [facility] INSURANCE BILL [address] [place] [address] * MAMMO SCREENING DIGITAL IMAGE BILAT (11/03/2014) Anatomical Region Laterality Modality Breast Bilateral Other Dequan Reynaga MD MAMMO ORDERABLES Final Resul t * HPV DNA PROBE HIGH RISK (06/26/2014 10:10 AM FIELD OPERATIONS COORDINATOR) Human papillomavirus High Risk Negative Negative [facility] ACCOUNT BILL Comment: This high-risk HPV test detects thirteen high-risk types (16/18/31/33/35/39/45/51/52/56/58/59/68) without differentiation. . 06/26/2014 10:1 0 AM FIELD OPERATIONS COORDINATOR 06/27/2014 1:28 AM FIELD OPERATIONS COORDINATOR Narrative [facility] ACCOUNT BILL - 07/04/2014 6:17 AM FIELD OPERATIONS COORDINATOR No. of containers..01 CYTYC Thin Prep Vial Resulting Agency Comment [facility] [address] [phone] Dequan Reynaga MD LAB - MICROBIOLOGY ORDERABLE S Final Result Performing Organization Address City/State/[facility] Co de Phone Number [facility] ACCOUNT BILL [address] [place] [address] from Last 3 Months or Most Recently Relevant to Health Maintenance Insurance [place] [address] [employer] [facility] Advance Directives * Full Code (Latest Code Status on File) Date Activated Date Inactivated Comments 03/18/2017 4:13 AM 03/20/2017 6:06 PM * Full Code Date Activated Date Inactivated Comments 06/15/2015 2:46 PM 06/19/2015 12:58 AM * Full Code Date Activated Date Inactivated Comments 06/15/2015 10:14 AM 06/15/2015 2:46 PM
--- OUTSIDE RECORDS SUMMARY | 2025-01-20 13:11 | XMS_ITS | Encounter Summary ---
Author Organization [facility] Address [address] [address] Care Team Providers Care Behavioral Health Consultant Name Role Phone Unavailable Primary Care Provider Unavailabl e Encounter Details Date Type Department Care Team (Late st Contact Info) Description 08/14/2015 Lab Requisition [facility] [address] [place] [address] Unknown, Provider Social History Tobacco Use Types Packs/Day Years Used Date Smoking Tobacco: Former Cigarettes Comments:quit 1 year ago Alcohol Use Standard Drinks/Week Comments No 0 (1 standard drink = 0.6 oz pur e alcohol) occasional Comments No Sex and Gender Information Value Date Recorded Sex Assigned at Not on file Legal Sex Female 2:07 PM FINANCIAL OPERATIONS CLERK Gender Identity Not on file Sexual Orientation Not on file 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 Answer Date of Assessment Author No 06/15/2015 2:51 PM Efren Hummel RN * Is person blind or have serious difficulty seeing? Answer Date of Assessment Author No 06/15/2015 2:51 PM Efren Hummel RN * Does person have serious difficulty walking/climbing stairs? Answer Date of Assessment Author No 06/15/2015 2:51 PM Efren Hummel RN * Does person have difficulty dressing/bathing? Answer Date of Assessment Author No 06/15/2015 2:51 PM Efren Hummel RN * Does person have difficulty doing errands alone? Answer Date of Assessment Author No 06/15/2015 2:51 PM FINANCIAL OPERATIONS CLERK Efren Alfonso RN documented as of this encounter Mental Status * Does person have difficulty concentrating/remembering/making decisions? Answer Entry Date Author No 06/15/2015 2:51 PM FINANCIAL OPERATIONS CLERK Efren Alfonso RN documented in this encounter Plan of Treatment Not on file documented as of this encounter Procedures Procedure Name Priority Date/Time Associated Diagnosis Comments VARICELLA ZOSTER ANTIBODY IGG Routine 08/14/2015 9:20 AM FINANCIAL OPERATIONS CLERK documented in this encounter Results * VARICELLA ZOSTER ANTIBODY IGG (08/14/2015 9:20 AM FINANCIAL OPERATIONS CLERK) Varicella zoster Virus Antibody IgG 212 Immune >165 index 08/16/2015 11:20 AM FINANCIAL OPERATIONS CLERK [facility] ([facility]) Comment: Negative <135 Equivocal 135 - 165 Positive >165 A positive result generally indicates exposure to the pathogen or administration of specific immunoglobulins, but it is not indication of active infection or stage of disease. Blood specimen (specimen) BLOOD SPECIMEN / Unknown Venipuncture / Unknown 08/14/2015 9:20 AM FINANCIAL OPERATIONS CLERK 08/14/2015 7:10 PM FINANCIAL OPERATIONS CLERK Narrative [facility] ([facility]) - 08/16/2015 11:20 AM FINANCIAL OPERATIONS CLERK Performed at: [address] [place] [phone] Throw Out Clerk: Tu Macias PhD, Phone: [phone] us Provider Unknown LAB - CHEMISTRY ORDERABLES Diana l Result Performing Organization Address City/State/[facility] Co de Phone Number [facility] ([facility]) [address] [place] [address] documented in this encounter Visit Diagnoses Not on filedocumented in this encounter
== END 2025-01-20 13:05 | disposition home or self-care (01) ==
LOC: ANHIMG 13:09
DX: R92.8 Other abnormal and inconclusive findings on diagnostic imaging of breast (principal)
CPT/HCPCS: 77062; 77066; G0279